=== PATIENT | male | born 1980 | race Caucasian/White ===

== ENCOUNTER 2020-08-10 15:30 | Outpatient (CLI) | payer BC, SELFPAY ==
--- NOTE | ~2020-08-10 | CT_ITS ---
EXAMINATION: CT abdomen pelvis w con DATE: 08/10/2020 15:50 INDICATION: Chronic left lower quadrant abdominal pain TECHNIQUE: Computed tomography (CT) of the abdomen and pelvis was performed with 100 mL Omnipaque-350 intravenous contrast. Automated exposure control and iterative reconstruction technique were employe d. The dose-length product was 1257.40 mGy-cm. COMPARISON: None FINDINGS: Lung bases are clear. Heart size is normal. No pericardial or pleural effusion. Liver, gallbladder, s pleen, pancreas, bilateral adrenal glands and kidneys are normal. Bowels including the appendix are n ormal. Bladder and prostate are normal. No free intraperitoneal gas or fluid. No pathologically enlar ged abdominal or pelvic lymphadenopathy. Mild lumbar levocurvature. Mild degenerative skeletal change s in the spine and bilateral hips. IMPRESSION: 1. No acute intra-abdominal/pelvic process. Reviewed, dictated and finalized at location B.
== END 2020-08-10 15:31 ==
DX: R10.32 Left lower quadrant pain (principal); G89.29 Other chronic pain
CPT/HCPCS: 74177; Q9967

== ENCOUNTER 2023-09-15 18:20 | Emergency (ER) | payer BC, SELFPAY ==
--- NOTE | ~2023-09-15 | XR_ITS ---
EXAM: XR knee RT min 4V DATE: 09/15/2023 18:50 HISTORY: swelling and pain x3 days. no injury . COMPARISON: None available. FINDINGS: Normal mineralization. No fracture or dislocation. No lytic or blastic lesion. Mild tricom partmental osteoarthritis. Quadriceps enthesopathy. Small joint effusion. No erosion or periosteal ch omid. Anterior soft tissue swelling. IMPRESSION: No acute osseous finding in the right knee. Reviewed, dictated and finalized at location K.
[2023-09-15 18:24] VITALS: BP 157/94; PULSE 84; RESP 16; TEMP 36.5; O2SAT 99
--- NOTE | 2023-09-15 18:37 | ED.LOWEXIN ---
HPI - Extremity Injury (Lower) General Chief Complaint: Extremity Injury, Lower Stated Complaint: Right Knee Pain Time Seen by Provider: 09/15/23 18:30 Source: patient and RN notes reviewed Mode of arrival: ambulatory Limitations: no limitations History of Present Illness HPI Narrative: Patient presents today complaining of a 3 day history of right knee pain. Prior to onset, patient was favoring his left foot, then noted his knee started hurting and swelling. Denies numbness and tingling. He is pain-free at rest, but this increases to 9/10 with movement. He has been taking ibuprofen without relief. Pain increases with bending. Related Data Home Medications Medication Instructions Recorded Confirmed semaglutide 1 mg/dose (4 mg/3 mL) 1 mg subcut WEEKLY 08/04/23 09/15/23 subcutaneous pen injector Allergies Allergy/AdvReac Type Severity Reaction Status Date / Time No Known Allergies Allergy Verified 09/15/23 18:26 Review of Systems Review of Systems: CONSTITUTIONAL: Denies body aches, fever, chills, or sweats. EYES: Denies visual changes, redness, or discharge. ENT: Denies rhinorrhea, congestion, sore throat, or otalgia. CARDIOVASCULAR: Denies chest pain, palpitations, or edema. RESPIRATORY: Denies cough or dyspnea. GASTROINTESTINAL: Denies abdominal pain, nausea, vomiting, or diarrhea. GENITOURINARY: Denies dysuria or hematuria. SKIN: Denies rash, itching, or wounds. MUSCULOSKELETAL: Denies back pain, or myalgia.+ right knee pain and swelling NEUROLOGIC: Denies headache, numbness, tingling, or weakness. PSYCH: Denies depression or anxiety. [facility] Social History Social History Social History: Caffeine-daily Smoking status: Never smoker Alcohol intake: current Alcohol use details: wine occasionally Substance use: never Substance use type: does not use Lack of Transportation: No Lack of Food: Never True Current Housing: I Have Housing Concerned About Future Housing: No Difficulty Paying Gas/Electric Bills: No Difficulty Paying for Meds: No Currently Unemployed: No Education: Bachelor's Degree Difficulty w/ Childcare or Family Care: No Living arrangements: with family Comments At time of signature, I have reviewed and agree with nursing past medical, surgical, social and family history unless otherwise noted. Please see nursing chart for further information. There is no relevant family history pertinent to the presenting complaint Exam Narrative: GENERAL: Well-appearing, well-nourished, and in no acute distress. HEAD: Normocephalic, atraumatic. EYES: EOMI. No redness or drainage. Conjunctivae normal. ENT: Mucous membranes pink and moist. NECK: Normal AROM. . CHEST: No respiratory distress. EXTREMITIES: Right knee: Tenderness and edema to the superior portion of the knee. No bony tenderness of the patella. No tenderness to the patellar tendon or popliteal fossa. Pain with movement of the knee. Distal sensation intact. Capillary refill normal. SKIN: Warm, dry, no rash. Capillary refill normal. Normal skin turgor. NEURO: No focal deficits. Alert and oriented x3. Gait steady. PSYCH: Normal affect. No signs of depression or anxiety. Course Course Level of Care: Express Care Visit Vital Signs Vital signs: Vital Signs Temperature 97.7 F 09/15/23 18:24 Pulse Rate 84 09/15/23 18:24 Respiratory Rate 16 09/15/23 18:24 Blood Pressure 157/94 H 09/15/23 18:24 Pulse Oximetry 99 09/15/23 18:24 Oxygen Delivery Room Air 09/15/23 18:24 Temperature 97.7 F 09/15/23 18:24 Pulse Rate 84 09/15/23 18:24 Respiratory Rate 16 09/15/23 18:24 Blood Pressure 157/94 H 09/15/23 18:24 Pulse Oximetry 99 09/15/23 18:24 Oxygen Delivery Room Air 09/15/23 18:24 Reviewed MDM - Extremity Injury (Lower) MDM Narrative Medical decision making narrative: X-ray shows small
== END 2023-09-15 19:21 | disposition home or self-care (01) ==
PROVIDERS: Emergency Provider Nurse Practitioner; PCP Internal Medicine
DX: M25.561 Pain in right knee (principal); M25.461 Effusion, right knee; M10.9 Gout, unspecified
CPT/HCPCS: 73564; 99213; G0463